=== PATIENT | female | born 1960 | race Caucasian/White ===

== ENCOUNTER → 2020-12-11 | Outpatient (CLI) | payer OTHER ==
[~2020-12-11] MED LIST: ASPIRIN EC81 MG PO; CITALOPRAM HBR10 MG PO; CRESTOR 10 MG T10 MG PO; ELIQUIS 5 MG TAB5 MG PO; FISH OIL EC 1,1 EACH PO; LISINOPRIL10 MG PO; MONTELUKAST SOD10 MG PO; PROPRANOLOL HCL10 MG PO; ZYRTEC10 MG PO
== END ==
LOC: WCC 14:55
PROC: 0JBR0ZZ Excision of Left Foot Subcutaneous Tissue and Fascia, Open Approach (ICD-10-PCS; principal; 2020-12-11)
DX: S91.102A Unspecified open wound of left great toe without damage to nail, initial encounter (principal); I96 Gangrene, not elsewhere classified; G90.09 Other idiopathic peripheral autonomic neuropathy; F17.291 Nicotine dependence, other tobacco product, in remission; Z88.0 Allergy status to penicillin; Z88.1 Allergy status to other antibiotic agents; Z88.5 Allergy status to narcotic agent; Z91.040 Latex allergy status; Z79.2 Long term (current) use of antibiotics; Z79.01 Long term (current) use of anticoagulants; Z92.21 Personal history of antineoplastic chemotherapy; Z92.3 Personal history of irradiation; X58.XXXA Exposure to other specified factors, initial encounter
CPT/HCPCS: 87070; 87205; G0463

== ENCOUNTER → 2020-12-25 | Outpatient (CLI) | payer OTHER | END | disposition home or self-care (01) | LOC: WCC 15:00 | DX: S91.102A Unspecified open wound of left great toe without damage to nail, initial encounter (principal); L97.529 Non-pressure chronic ulcer of other part of left foot with unspecified severity; I73.9 Peripheral vascular disease, unspecified; G60.8 Other hereditary and idiopathic neuropathies; Z88.0 Allergy status to penicillin; Z88.8 Allergy status to other drugs, medicaments and biological substances; Z87.891 Personal history of nicotine dependence ==

== ENCOUNTER → 2021-01-08 | Outpatient (CLI) | payer OTHER | LOC: WCC 14:29 | PROC: 0KBW0ZZ Excision of Left Foot Muscle, Open Approach (ICD-10-PCS; principal; 2021-01-08) | DX: S91.102A Unspecified open wound of left great toe without damage to nail, initial encounter (principal); L08.89 Other specified local infections of the skin and subcutaneous tissue; I96 Gangrene, not elsewhere classified; F17.291 Nicotine dependence, other tobacco product, in remission; G90.09 Other idiopathic peripheral autonomic neuropathy; Z88.0 Allergy status to penicillin; Z88.1 Allergy status to other antibiotic agents; Z79.2 Long term (current) use of antibiotics; Z79.01 Long term (current) use of anticoagulants; Z92.21 Personal history of antineoplastic chemotherapy; Z92.3 Personal history of irradiation; X58.XXXA Exposure to other specified factors, initial encounter ==

== ENCOUNTER → 2021-01-22 | Outpatient (CLI) | payer OTHER | LOC: WCC 14:22 | PROC: 0KBW0ZZ Excision of Left Foot Muscle, Open Approach (ICD-10-PCS; principal; 2021-01-22) | DX: S91.102A Unspecified open wound of left great toe without damage to nail, initial encounter (principal); I96 Gangrene, not elsewhere classified; F17.291 Nicotine dependence, other tobacco product, in remission; G90.09 Other idiopathic peripheral autonomic neuropathy; Z88.0 Allergy status to penicillin; Z88.1 Allergy status to other antibiotic agents; Z79.2 Long term (current) use of antibiotics; Z79.01 Long term (current) use of anticoagulants; Z92.3 Personal history of irradiation; Z92.21 Personal history of antineoplastic chemotherapy; X58.XXXA Exposure to other specified factors, initial encounter ==

== ENCOUNTER → 2021-01-29 | Outpatient (CLI) | payer OTHER | LOC: WCC 14:11 | DX: S91.102D Unspecified open wound of left great toe without damage to nail, subsequent encounter (principal); I73.9 Peripheral vascular disease, unspecified; G90.09 Other idiopathic peripheral autonomic neuropathy; F17.291 Nicotine dependence, other tobacco product, in remission; X58.XXXD Exposure to other specified factors, subsequent encounter | CPT/HCPCS: 87070; 87205 ==

== ENCOUNTER → 2021-02-05 | Outpatient (CLI) | payer OTHER | LOC: WCC 14:09 | PROC: 0QBR0ZZ Excision of Left Toe Phalanx, Open Approach (ICD-10-PCS; principal; 2021-02-05) | DX: S91.102A Unspecified open wound of left great toe without damage to nail, initial encounter (principal); I96 Gangrene, not elsewhere classified; G90.09 Other idiopathic peripheral autonomic neuropathy; Z88.0 Allergy status to penicillin; Z88.1 Allergy status to other antibiotic agents; Z79.2 Long term (current) use of antibiotics; Z79.01 Long term (current) use of anticoagulants; X58.XXXA Exposure to other specified factors, initial encounter ==